=== PATIENT | male | born 1965 | race African-American/Black ===

== ENCOUNTER 2021-11-11 12:10 | Inpatient (IN) | payer OTHER ==
[~2021-11-11] VITALS: Ht 175.3 cm; Wt 100.0 kg
[2021-11-11] MEDS ORDERED: KETOROLAC 30 MG/ML VIAL. IVP ONE (12:45)
[2021-11-11] MEDS ORDERED: methylPREDNISolone SOD SUCC PF 125 MG/2 ML VIAL. IV ONE (12:45)
[2021-11-11] MEDS ORDERED: ORPHENADRINE CITRATE 60 MG/2 ML VIAL. IM ONE (12:45)
[2021-11-11] MEDS ORDERED: fentaNYL PF VIAL 100 MCG/2 ML VIAL IVP ONE ×2 (12:45→15:45)
--- NOTE | 2021-11-11 12:58 | PHYS DOC ---
Past Medical History Past Surgical History: No Surgical History General Adult EDM: Chief Complaint: BACK PAIN - NO INJURY HPI: HPI: Patient is a 56 year old male who presents with left to mid lower back pain is sharp and shooting at times wraps around into the hip area. For the last 2 days. He now has left hip numbness and numbness over the abdomen area. He states he is unable to ambulate due to pain and weakness in the left leg. Patient can however lift the leg up in the bed but this causes him spasm type pain in his lower back. Patient denies injury, any heavy lifting, loss of bowel or bladder, fever, urinary symptoms. He states he is just been rubbing Vicks ointment to the area but is not helping. He is Swahili speaking but family member in the room can interpret for him. Patient states when he is laying flat he has no pain but if he goes to try to move at all his pain is a 10 out of 10. Review of Systems: Review of Systems: Constitutional: Denies fever or chills. [] Eyes: Denies change in visual acuity. [] HENT: Denies nasal congestion or sore throat. [] Respiratory: Denies cough or shortness of breath. [] Cardiovascular: Denies chest pain or edema. [] GI: Denies abdominal pain, nausea, vomiting, bloody stools or diarrhea. [] : Denies dysuria. [] Musculoskeletal: + Mid lower and left lower back pain or left hip joint pain. [] Integument: Denies rash. [] Neurologic: Denies headache, focal weakness or sensory changes. + Numbness to left hip and abdomen area [] Endocrine: Denies polyuria or polydipsia. [] Lymphatic: Denies swollen glands. [] Psychiatric: Denies depression or anxiety. [] Heart Score: C/O Chest Pain: No Current Medications: Current Medications Medications (Trade) Dose Ordered Sig/Alcon Start Time Stop Time Status Last Admin Dose Admin Fentanyl Citrate (Fentanyl 2ml Vial) 50 mcg 1X ONCE 11/11/21 12:45 11/11/21 12:46 UNV Ketorolac Tromethamine (Toradol 30mg Vial) 30 mg 1X ONCE 11/11/21 12:45 11/11/21 12:46 UNV Methylprednisolone Sodium Succinate (SOLU-Medrol 125MG VIAL) 125 mg 1X ONCE 11/11/21 12:45 11/11/21 12:46 UNV Orphenadrine Citrate (Norflex) 60 mg 1X ONCE 11/11/21 12:45 11/11/21 12:46 UNV Allergies: Allergies: Allergies Coded Allergies Type Severity Reaction Last Updated Verified No Known Drug Allergies 11/11/21 No Physical Exam: PE: Constitutional: Well developed, well nourished, no acute distress, non-toxic appearance. [] HENT: Normocephalic, atraumatic, bilateral external ears normal, oropharynx moist, no oral exudates, nose normal. [] Eyes: PERRLA, EOMI, conjunctiva normal, no discharge. [] Neck: Normal range of motion, no tenderness, supple, no stridor. [] Cardiovascular:Heart rate regular rhythm, no murmur [] Lungs & Thorax: Bilateral breath sounds clear to auscultation [] Abdomen: Bowel sounds normal, soft, no tenderness, no masses, no pulsatile masses. [] Skin: Warm, dry, no erythema, no rash. [] Back: No tenderness, no CVA tenderness. [] Extremities: No tenderness, no cyanosis, no clubbing, ROM intact, no edema. [] Neurologic: Alert and oriented X 3, normal motor function, normal sensory function, no focal deficits noted. Numbness to lateral left hip and over lower abdomen area more so on the left side. [] Psychologic: Affect normal, judgement normal, mood normal. [] Current Patient Data: Vital Signs: Vital Signs Date Time Temp Pulse Resp B/P (MAP) Pulse Ox O2 Delivery O2 Flow Rate FiO2 11/11/21 12:10 98.2 90 18 178/83 (114) 98 Room Air 98.2 EKG: EKG: [] Radiology/Procedures: Radiology/Procedures: [] Impression: [facility] [address] [place] [address] IMAGING REPORT Signed PATIENT: BLAIR JEAN ACCOUNT: [id number] : 1965 LOCATION: ER AGE: 56 SEX: M EXAM STATUS: PRE ER ORD. PHYSICIAN: DAMION BOLTON APRN REASON: pain with movement- lab with pt PROCEDURE: HIP LEFT 2V WITH PELVIS AP view of the pelvis and two-view study of the left hip Clinical indications: Left hip pain with movement. FINDINGS: No acute fracture or dislocation or lytic process is evident. There is mild degenerative spurring of the left femoral head and mild degenerative joint space narrowing and subchondral sclerosis. The findings are consistent with primary degenerative osteoarthritis. The femoral head spurring seen laterally and superiorly at the junction with the left femoral neck could potentially caus e femoral acetabular impingement as well. IMPRESSION: No acute osseous abnormality. Mild primary degenerative osteoarthritis of the left hip joint. The left femoral head spurring at the junction with the femoral neck could result in femoral acetabular impingement. Electronically signed by: Will Kulkarni MD (11/11/2021 1:19 PM) [id number] DICTATED and SIGNED BY: WILL KULKARNI MD DATE: 11/11/21 1316 [facility] [address] [place] [address] IMAGING REPORT Signed PATIENT: BLAIR JEAN ACCOUNT: [id number] : 1965 LOCATION: ER AGE: 56 SEX: M EXAM STATUS: REG ER ORD. PHYSICIAN: DAMION BOLTON APRN REASON: pain with weakness in left extremity PROCEDURE: CT ABDOMEN PELVIS WO CONTRAST Study: 1. CT abdomen/pelvis without intravenous contrast 2. CT lumbar spine reconstruction Indication: Abdominal pain. Left lower extremity weakness. Comparison: No previous CT. Technique: Helical CT imaging performed of the abdomen and pelvis without the use of intravenous contrast. Sagittal and coronal reformats were obtained. The data was utilized to reconstruct smaller [id number] images through the lumbar spine. One or more of the following individualized dose reduction techniques were utilized for this examination: 1. Automated exposure control 2. Adjustment of the mA and/or kV according to patient size 3. Use of iterative reconstruction technique. Findings: Abdomen/pelvis: Inherently limited evaluation without intravenous contrast. Small hiatal hernia. Mildly patulous distal esophagus. No concerning localized wall thickening or surrounding inflammation/lymph node enlargement. Mild bibasilar atelectasis. Unremarkable liver, pancreas, spleen and adrenal glands. Gallstones without ancillary findings of acute cholecystitis. Nondilated biliary tree. Probable cyst at the lower pole of the left kidney, image 34 series 2, measuring up to approximately 1.7 cm. This is not well characterized but measures near simple density. No stone or hydronephrosis. Small calcification at the anterior margin of the bladder. No suspicious bladder wall thickening. The prostate is within normal limits at under 4 cm transverse. No significant abnormality of the colon. Mild volume well-formed stool. The appendix is likely surgically absent. Nonobstructed small bowel. Unremarkable stomach which is distended with ingested material. Small amount of calcific atherosclerosis. Nonaneurysmal abdominal aorta. Fat- containing inguinal hernia on the right with a small amount of fluid in the he rnia sac. No surrounding inflammation. No lymphadenopathy. Mild arthrosis at the hips. The visualized ribs are intact. Lumbar spine findings discussed below. 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 No acute fracture or focally aggressive osseous process. Mild levocurvature with the apex at L2. No advanced discogenic arthrosis. There is a component of central canal narrowing from L2-L3 through L4-L5. Narrowing of the neural foramina from L3-L4 through L5-S1. Impression: Abdomen/pelvis: 1. No acute abnormality identified throughout the abdomen or pelvis. 2. Gallstones without any associated findings of acute cholecystitis. 3. Fat-containing inguinal hernia on the right without evidence by CT for incarceration/strangulation. Correlate for any pain referrable to this region. Lumbar spine: 1. No acute osseous abnormality. 2. There is a component of central canal and neural foraminal narrowing from L2- L3 and below that does not appear to be severe however is incompletely characterized. If there is ongoing radiculopathy nonemergent/outpatient MRI is recommended. Electronically signed by: YORDY GUZMAN MD (11/11/2021 1:32 PM) [facility] DICTATED and SIGNED BY: YORDY GUZMAN MD DATE: 11/11/21 1321 Course & Med Decision Making: Course & Med Decision Making Pertinent Labs and Imaging studies reviewed. (See chart for details) See HPI. Speaks in full clear sentences. Less than sensation in the left lateral hip area to thigh, more so over the left lower abdomen area but patient points across the whole mid to lower abdomen area. Alert and oriented x4. Denies any type of headache, fall or dizziness. Denies any current vision change. States urinating is normal. Patient is given 125 Solu-Medrol, Norflex and Toradol. No acute findings on CT scans. Patient on a unable to ambulate or get up. Patient will be admitted for intractable back pain with weakness and numbness. I spoke to Pamela nurse practitioner for Dr. Messina who states to go ahead and admit the patient and put in an order for an MRI. Patient admitted to Dr. Castillo. [] Darwin Disclaimer: Darwin Disclaimer: This electronic medical record was generated, in whole or in part, using a voice recognition dictation system. Departure Departure Impression: Primary Impression: Intractable low back pain Additional Impressions: Numbness Weakness Unable to ambulate Disposition: ADMITTED INPATIENT Admitting Physician: ANURAG Condition: STABLE DAMION BOLTON EMPLOYEE REPRESENTATIVE November 11, 2021 12:58
[2021-11-11 13:14] LABS: BASO % 1 % (0-3); EOS # 0.1 x10^3/uL (0.0-0.7); EOS % 2 % (0-3); HEMATOCRIT 42.5 % (39.0-53.0); HEMOGLOBIN 14.5 g/dL (13.0-17.5); LYMPH # 1.8 x10^3/uL (1.0-4.8); LYMPH % 38 % (24-48); MEAN CORPUSCULAR HEMOGLOBIN 29 pg (25-35); MEAN CORPUSCULAR HGB CONC 34 g/dL (31-37); MEAN CORPUSCULAR VOLUME 85 fL (79-100); MONO # 0.3 x10^3/uL (0.0-1.1); MONO % 7 % (0-9); NEUT # 2.5 x10^3/uL (1.8-7.7); NEUT % 52 % (31-73); PLATELET COUNT 186 x10^3/uL (140-400); RED BLOOD COUNT 5.02 x10^6/uL (4.30-5.70); RED CELL DISTRIBUTION WIDTH 12.8 % (11.5-14.5); WHITE BLOOD COUNT 4.8 x10^3/uL (4.0-11.0)
[2021-11-11 13:20] LABS: CALCIUM 8.5 mg/dL (8.5-10.1); CREATININE 1.2 mg/dL (0.7-1.3); GFR 62.4; POTASSIUM 3.8 mmol/L (3.5-5.1)
--- NOTE | 2021-11-11 13:22 | RAD ---
AP view of the pelvis and two-view study of the left hip Clinical indications: Left hip pain with movement. FINDINGS: No acute fracture or dislocation or lytic process is evident. There is mild degenerative sp urring of the left femoral head and mild degenerative joint space narrowing and subchondral sclerosis . The findings are consistent with primary degenerative osteoarthritis. The femoral head spurring see n laterally and superiorly at the junction with the left femoral neck could potentially cause femoral acetabular impingement as well. IMPRESSION: No acute osseous abnormality. Mild primary degenerative osteoarthritis of the left hip joint. The left femoral head spurring at the junction with the femoral neck could result in femoral acetabular impingement. Electronically signed by: Noel Kulkarni MD (11/11/2021 1:19 PM) [id number]
[2021-11-11 13:28] LABS: ALBUMIN 3.3 g/dL (3.4-5.0); ALBUMIN/GLOBULIN RATIO 0.8 (1.0-1.7); TOTAL BILIRUBIN 0.4 mg/dL (0.2-1.0); TOTAL PROTEIN 7.7 g/dL (6.4-8.2)
--- NOTE | 2021-11-11 13:34 | RAD ---
Study: 1. CT abdomen/pelvis without intravenous contrast 2. CT lumbar spine reconstruction Indication: Abdominal pain. Left lower extremity weakness. Comparison: No previous CT. Technique: Helical CT imaging performed of the abdomen and pelvis without the use of intravenous cont rast. Sagittal and coronal reformats were obtained. The data was utilized to reconstruct smaller fiel d-of-view images through the lumbar spine. One or more of the following individualized dose reduction techniques were utilized for this examinat ion: 1. Automated exposure control 2. Adjustment of the mA and/or kV according to patient size 3. Use of iterative reconstruction technique. Findings: Abdomen/pelvis: Inherently limited evaluation without intravenous contrast. Small hiatal hernia. Mildly patulous distal esophagus. No concerning localized wall thickening or sid rounding inflammation/lymph node enlargement. Mild bibasilar atelectasis. Unremarkable liver, pancreas, spleen and adrenal glands. Gallstones without ancillary findings of acu te cholecystitis. Nondilated biliary tree. Probable cyst at the lower pole of the left kidney, image 34 series 2, measuring up to approximately 1.7 cm. This is not well characterized but measures near simple density. No stone or hydronephrosis. Small calcification at the anterior margin of the bladder. No suspicious bladder wall thickening. The prostate is within normal limits at under 4 cm transverse. No significant abnormality of the colon. Mild volume well-formed stool. The appendix is likely surgic ally absent. Nonobstructed small bowel. Unremarkable stomach which is distended with ingested materia l. Small amount of calcific atherosclerosis. Nonaneurysmal abdominal aorta. Fat-containing inguinal jodee ia on the right with a small amount of fluid in the hernia sac. No surrounding inflammation. No lymph adenopathy. Mild arthrosis at the hips. The visualized ribs are intact. Lumbar spine findings discussed below. 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 No acute fracture or focally aggressive osseous pr ocess. Mild levocurvature with the apex at L2. No advanced discogenic arthrosis. There is a component of central canal narrowing from L2-L3 through L4-L5. Narrowing of the neural foramina from L3-L4 thr ough L5-S1. Impression: Abdomen/pelvis: 1. No acute abnormality identified throughout the abdomen or pelvis. 2. Gallstones without any associated findings of acute cholecystitis. 3. Fat-containing inguinal hernia on the right without evidence by CT for incarceration/strangulatio n. Correlate for any pain referrable to this region. Lumbar spine: 1. No acute osseous abnormality. 2. There is a component of central canal and neural foraminal narrowing from L2-L3 and below that atkins s not appear to be severe however is incompletely characterized. If there is ongoing radiculopathy no nemergent/outpatient MRI is recommended. Electronically signed by: YORDY GUZMAN MD (11/11/2021 1:32 PM) [facility]
[2021-11-11 15:08] LABS: BACTERIA,URINE 0 /HPF (0-FEW)
--- NOTE | 2021-11-11 17:43 | NUR ---
used bull wheel worker Per ID# [id number] for pt's admission questions and health history. pt also said he does not take any home meds, no med reconciliation to be done. Pharmacy on verified and on file
[2021-11-11] MEDS ORDERED: ZOLPIDEM 5 MG TABLET. PO PRN (17:45)
[2021-11-11] MEDS ORDERED: oxyCODONE/APAP 5/325 1 TAB TABLET PO PRN (17:45)
[2021-11-11] MEDS ORDERED: CALCIUM CARBONATE 500 MG TAB.CHEW PO PRN (17:45)
[2021-11-11] MEDS ORDERED: ONDANSETRON PF 4 MG/2 ML VIAL. IVP PRN (17:45)
[2021-11-11] MEDS ORDERED: ELECTROLYTE (NON-ICU) PROTOCOL. MC PRN (17:45)
[2021-11-11] MEDS ORDERED: ACETAMINOPHEN 325 MG TABLET. PO PRN (17:45)
[2021-11-11] MEDS: oxyCODONE/APAP 5/325 1 TAB TABLET PO PRN ×2 (18:21→23:26)
[2021-11-11] MEDS: HEPARIN for SUB-Q USE 5,000 UNIT/ML VIAL. SQ SCH ×2 (18:25→23:35)
--- NOTE | 2021-11-11 18:42 | NUR ---
Notifed Dr. Newman of consult via telephone by JARET Abarms
[2021-11-11 19:00] VITALS: BP 148/93
--- NOTE | 2021-11-11 19:35 | PDOC1 ---
History and Physical Date of Service: DOS: DATE: 11/11/21 TIME: 19:35 Chief Complaint: Chief Complain: back pain History of Present Illness: HPI: Patient is a 56-year-old male presents emergency room with today complaining of lower back pain. Reports that it began about 2 days ago and is now radiating into his lower extremities. Particularly numbness in his left lower extremity. Unable to ambulate right now due to to the pain. Denies any sort of injury or trauma to the area. No incontinence of bowel or bladder. Tried Vicks ointment on the area but no improvement. Pain worse with movement. In the emergency room patient was provided with pain control. Imaging showed some narrowing around L2-L3. He is given a dose of steroids. Admitted to hospitalist. Past Medical/Surgical History: PMH/PSH: No known per patient Allergies: Allergies: Coded Allergies: No Known Drug Allergies (Unverified , 11/11/21) Family History: Family History: None known Social History: Social History: denies alcohol drug use. Occasional tobacco use Current Medications: Current Medications Current Medications Orphenadrine Citrate (Norflex) 60 mg 1X ONCE IM Last administered on 11/11/21at 13:15; Start 11/11/21 at 12:45; Stop 11/11/21 at 12:50; Status DC Fentanyl Citrate (Fentanyl 2ml Vial) 50 mcg 1X ONCE IVP Last administered on 11/11/21at 12:45; Start 11/11/21 at 12:45; Stop 11/11/21 at 12:50; Status DC Methylprednisolone Sodium Succinate (SOLU-Medrol 125MG VIAL) 125 mg 1X ONCE IV Last administered on 11/11/21at 13:15; Start 11/11/21 at 12:45; Stop 11/11/21 at 12:50; Status DC Ketorolac Tromethamine (Toradol 30mg Vial) 30 mg 1X ONCE IVP Last administered on 11/11/21at 12:45; Start 11/11/21 at 12:45; Stop 11/11/21 at 12:50; Status DC Fentanyl Citrate (Fentanyl 2ml Vial) 50 mcg 1X ONCE IVP Last administered on 11/11/21at 16:48; Start 11/11/21 at 15:45; Stop 11/11/21 at 15:48; Status DC Ondansetron HCl (Zofran) 4 mg PRN Q6HRS PRN IVP NAUSEA/VOMITING; Start 11/11/21 at 17:45 Calcium Carbonate/ Glycine (Tums) 500 mg PRN Q3HRS PRN PO UPSET STOMACH; Start 11/11/21 at 17:45 Zolpidem Tartrate (Ambien) 5 mg PRN QHS PRN PO INSOMNIA, MAY REPEAT IN 1HR; Start 11/11/21 at 17:45 Info (Non-Icu Electrolyte Protocol) 1 ea PRN DAILY PRN MC SEE COMMENTS; Start 11/11/21 at 17:45 Oxycodone/ Acetaminophen (Percocet 5/325) 1 tab PRN Q4HRS PRN PO MILD PAIN, 1ST CHOICE; Start 11/11/21 at 17:45 Oxycodone/ Acetaminophen (Percocet 5/325) 2 tab PRN Q4HRS PRN PO MODERATE PAIN, SEVERE PAIN Last administered on 11/11/21at 18:21; Start 11/11/21 at 17:45 Acetaminophen (Tylenol) 650 mg PRN Q6HRS PRN PO Headaches, Temp > 101.5F; Start 11/11/21 at 17:45 Senna/Docusate Sodium (Senna Plus) 1 tab BID PO ; Start 11/11/21 at 21:00 Heparin Sodium (Porcine) (Heparin Sodium) 5,000 unit Q8HRS SQ Last administered on 11/11/21at 18:25; Start 11/11/21 at 18:00 ROS: Review of Systems Review of System Unless noted in HPI 14 point review of systems was negative Physical Exam: Vital Signs: Vital Signs Date Time Temp Pulse Resp B/P (MAP) Pulse Ox O2 Delivery O2 Flow Rate FiO2 11/11/21 18:51 18 98 11/11/21 18:21 Room Air 11/11/21 12:10 98.2 90 178/83 (114) 98.2 Physcial Exam: GEN: Apparent distress due to pain. Alert and oriented HEENT: Normal cephalic, atraumatic, external auditory canals are patent EYES: Extraocular muscles are intact, pupil are equally round and reactive to light and accommodation MUSCULOSKELETAL: Well developed , well nourished, range of motion limited by pain ENDOCRINE: No thyromegaly was palpated LYMPHATICS: No cervical chain or axillary nodes were noted HEMATOPOIETIC: No bruising NECK: Supple, no JVD, no thyromegaly was noted LUNGS: Clear to auscultation in all lung cardoza without rhonchi or wheezing HEART: RRR, S1, S2 present. Peripheral pulses intact, no obvious murmurs noted ABDOMEN: Soft, nontender. Positive bowel sounds, no organomegaly, normal bowel sounds EXTREMITIES: Without clubbing, cyanosis, or edema. Pedal pulses intact. Negative Homans sign NEUROLOGIC: Normal speech and tone. A&O x 3, extremity movement limited by pain PSYCHIATRIC: Normal affect, normal mood. Stable SKIN: No ulcerations or rashes, good skin turgor, no jaundice VASCULAR: Good capillary refill, neurovascular bundle appears to be intact Labs: Labs: Laboratory Tests Test 11/11/21 13:00 11/11/21 14:56 White Blood Count 4.8 x10^3/uL (4.0-11.0) Red Blood Count 5.02 x10^6/uL (4.30-5.70) Hemoglobin 14.5 g/dL (13.0-17.5) Hematocrit 42.5 % (39.0-53.0) Mean Corpuscular Volume 85 fL (79-100) Mean Corpuscular Hemoglobin 29 pg (25-35) Mean Corpuscular Hemoglobin Concent 34 g/dL (31-37) Red Cell Distribution Width 12.8 % (11.5-14.5) Platelet Count 186 x10^3/uL (140-400) Neutrophils (%) (Auto) 52 % (31-73) Lymphocytes (%) (Auto) 38 % (24-48) Monocytes (%) (Auto) 7 % (0-9) Eosinophils (%) (Auto) 2 % (0-3) Basophils (%) (Auto) 1 % (0-3) Neutrophils # (Auto) 2.5 x10^3/uL (1.8-7.7) Lymphocytes # (Auto) 1.8 x10^3/uL (1.0-4.8) Monocytes # (Auto) 0.3 x10^3/uL (0.0-1.1) Eosinophils # (Auto) 0.1 x10^3/uL (0.0-0.7) Basophils # (Auto) 0.0 x10^3/uL (0.0-0.2) Sodium Level 140 mmol/L (136-145) Potassium Level 3.8 mmol/L (3.5-5.1) Chloride Level 106 mmol/L (98-107) Carbon Dioxide Level 26 mmol/L (21-32) Anion Gap 8 (6-14) Blood Urea Nitrogen 16 mg/dL (8-26) Creatinine 1.2 mg/dL (0.7-1.3) Estimated GFR (Cockcroft-Gault) 62.4 BUN/Creatinine Ratio 13 (6-20) Glucose Level 91 mg/dL (70-99) Calcium Level 8.5 mg/dL (8.5-10.1) Magnesium Level 2.0 mg/dL (1.8-2.4) Total Bilirubin 0.4 mg/dL (0.2-1.0) Aspartate Amino Transf (AST/SGOT) 55 U/L (15-37) Alanine Aminotransferase (ALT/SGPT) 53 U/L (16-63) Alkaline Phosphatase 66 U/L (46-116) Total Protein 7.7 g/dL (6.4-8.2) Albumin 3.3 g/dL (3.4-5.0) Albumin/Globulin Ratio 0.8 (1.0-1.7) Urine Collection Type Unknown Urine Color (Auto) Light yellow Urine Turbidity Clear Urine pH (Auto) 5.5 (<5.0-8.0) Urine Specific [place] 1.017 (1.000-1.030) Urine Protein (Auto) Negative mg/dL (Negative) Urine Glucose (Auto)(UA) Negative mg/dL (Negative) Urine Ketones (Auto) Negative mg/dL (Negative) Urine Blood (Auto) Trace (Negative) Urine Nitrite Negative (Negative) Urine Bilirubin (Auto) Negative (Negative) Urine Urobilinogen (Auto) Normal mg/dL (Normal) Urine Leukocyte Esterase (Auto) Negative (Negative) Urine RBC 1-2 /HPF (0-2) Urine WBC 1-4 /HPF (0-4) Urine Squamous Epithelial Cells Few /LPF Urine Bacteria 0 /HPF (0-FEW) Urine Mucus Mod /LPF Laboratory Tests Test 11/11/21 13:00 11/11/21 14:56 White Blood Count 4.8 x10^3/uL (4.0-11.0) Red Blood Count 5.02 x10^6/uL (4.30-5.70) Hemoglobin 14.5 g/dL (13.0-17.5) Hematocrit 42.5 % (39.0-53.0) Mean Corpuscular Volume 85 fL (79-100) Mean Corpuscular Hemoglobin 29 pg (25-35) Mean Corpuscular Hemoglobin Concent 34 g/dL (31-37) Red Cell Distribution Width 12.8 % (11.5-14.5) Platelet Count 186 x10^3/uL (140-400) Neutrophils (%) (Auto) 52 % (31-73) Lymphocytes (%) (Auto) 38 % (24-48) Monocytes (%) (Auto) 7 % (0-9) Eosinophils (%) (Auto) 2 % (0-3) Basophils (%) (Auto) 1 % (0-3) Neutrophils # (Auto) 2.5 x10^3/uL (1.8-7.7) Lymphocytes # (Auto) 1.8 x10^3/uL (1.0-4.8) Monocytes # (Auto) 0.3 x10^3/uL (0.0-1.1) Eosinophils # (Auto) 0.1 x10^3/uL (0.0-0.7) Basophils # (Auto) 0.0 x10^3/uL (0.0-0.2) Sodium Level 140 mmol/L (136-145) Potassium Level 3.8 mmol/L (3.5-5.1) Chloride Level 106 mmol/L (98-107) Carbon Dioxide Level 26 mmol/L (21-32) Anion Gap 8 (6-14) Blood Urea Nitrogen 16 mg/dL (8-26) Creatinine 1.2 mg/dL (0.7-1.3) Estimated GFR (Cockcroft-Gault) 62.4 BUN/Creatinine Ratio 13 (6-20) Glucose Level 91 mg/dL (70-99) Calcium Level 8.5 mg/dL (8.5-10.1) Magnesium Level 2.0 mg/dL (1.8-2.4) Total Bilirubin 0.4 mg/dL (0.2-1.0) Aspartate Amino Transf (AST/SGOT) 55 U/L (15-37) Alanine Aminotransferase (ALT/SGPT) 53 U/L (16-63) Alkaline Phosphatase 66 U/L (46-116) Total Protein 7.7 g/dL (6.4-8.2) Albumin 3.3 g/dL (3.4-5.0) Albumin/Globulin Ratio 0.8 (1.0-1.7) Urine Collection Type Unknown Urine Color (Auto) Light yellow Urine Turbidity Clear Urine pH (Auto) 5.5 (<5.0-8.0) Urine Specific [place] 1.017 (1.000-1.030) Urine Protein (Auto) Negative mg/dL (Negative) Urine Glucose (Auto)(UA) Negative mg/dL (Negative) Urine Ketones (Auto) Negative mg/dL (Negative) Urine Blood (Auto) Trace (Negative) Urine Nitrite Negative (Negative) Urine Bilirubin (Auto) Negative (Negative) Urine Urobilinogen (Auto) Normal mg/dL (Normal) Urine Leukocyte Esterase (Auto) Negative (Negative) Urine RBC 1-2 /HPF (0-2) Urine WBC 1-4 /HPF (0-4) Urine Squamous Epithelial Cells Few /LPF Urine Bacteria 0 /HPF (0-FEW) Urine Mucus Mod /LPF Assessment/Plan Assessment/Plan Intractable back pain with radiation to lower extremities, unable to ambulate secondary to pain. -Admit for pain control and further evaluation -Neurosurgery consulted in emergency room. Recommended MRI which is ordered -We will also consult PMR -As needed pain control overnight -PT OT -No home meds to resume -He does have normal bowel bladder function. Received a dose of steroids in the emergency room. We will hold off on any further until evaluated by consultants -May need rehab placement. -DVT prophylaxis Justifications for Admission Other Justification JIL JULIAN MD November 11, 2021 19:35
[2021-11-11 23:00] VITALS: BP 141/83
[2021-11-11] MEDS: SENNOSIDES/DOCUSATE 8.6/50MG TABLET. PO SCH (23:18)
[2021-11-12 03:28] VITALS: BP 133/80
[2021-11-12 06:15] VITALS: BP 135/75
[2021-11-12] MEDS: HEPARIN for SUB-Q USE 5,000 UNIT/ML VIAL. SQ SCH ×3 (06:26→21:58)
[2021-11-12] MEDS: oxyCODONE/APAP 5/325 1 TAB TABLET PO PRN ×3 (08:29→22:14)
[2021-11-12] MEDS: SENNOSIDES/DOCUSATE 8.6/50MG TABLET. PO SCH ×2 (08:29→21:52)
[2021-11-12] MEDS ORDERED: KETOROLAC 15 MG/ML VIAL. IM ONE (10:30)
[2021-11-12 11:00] VITALS: BP 146/86
[2021-11-12] MEDS ORDERED: MORPHINE SULFATE 2 MG/ML INJ. IVP PRN (13:00)
[2021-11-12 15:00] VITALS: BP 132/80
[2021-11-12] MEDS ORDERED: MAGNESIUM HYDROXIDE 2,400 MG/30 ML ORAL.SUSP. PO PRN (15:30)
[2021-11-12] MEDS ORDERED: BISACODYL 10 MG SUPP.RECT. PR PRN (15:30)
[2021-11-12] MEDS ORDERED: predniSONE 10 MG TABLET PO ONE (15:30)
[2021-11-12] MEDS ORDERED: SODIUM PHOSPHATES 19/7GM 133 ML ENEMA. PR PRN (15:30)
[2021-11-12] MEDS: tiZANidine 4 MG TABLET. PO SCH ×2 (16:21→21:52)
[2021-11-12] MEDS: PANTOPRAZOLE 40 MG TABLET.DR. PO SCH (16:21)
[2021-11-12] MEDS: BISACODYL 5 MG TABLET.DR. PO SCH (16:21)
[2021-11-12] MEDS: LIDOCAINE (700MG/PATCH) PATCH. TD SCH (16:22)
[2021-11-12 19:00] VITALS: BP 163/94
--- NOTE | 2021-11-12 20:44 | PDOC ---
[facility] PROGRESS NOTE Date of Service DOS: DATE: 11/12/21 TIME: 20:42 Chief Complaint Chief Complaint Intractable back pain with radiation to lower extremities, unable to ambulate secondary to pain. -Admit for pain control and further evaluation -Neurosurgery consulted in emergency room. Recommended MRI which is ordered -We will also consult PMR -As needed pain control overnight -PT OT -No home meds to resume -He does have normal bowel bladder function. Received a dose of steroids in the emergency room. We will hold off on any further until evaluated by consultants -May need rehab placement. -DVT prophylaxis History of Present Illness History of Present Illness 11/12 Patient evaluated examined at bedside. at bedside provided translation. Reporting ongoing pain particularly with movement. MRI ordered. Will increase pain meds add on morphine today. PMR neurosurgery consults pending. Informed patient and family careful work-up is still pending they understand this. Hopeful for MRI tonight or tomorrow morning. Discussed with bedside RN. Vitals/I&O Vitals/I&O: Vital Signs Date Time Temp Pulse Resp B/P (MAP) Pulse Ox O2 Delivery O2 Flow Rate FiO2 11/12/21 19:00 98.0 76 18 163/94 (117) 96 Room Air 98.0 I & O 11/11/21 11/11/21 11/12/21 15:00 23:00 07:00 Intake Total 1100 ml Balance 1100 ml Physical Exam General: Alert, Oriented X3, Cooperative Heart: Regular rate, Normal S1, Normal S2 Lungs: Clear Abdomen: Normal bowel sounds, Soft, No tenderness Extremities: No edema, Normal pulses Skin: No significant lesion Assessment and Plan Assessmemt and Plan Problems Medical Problems: (1) Intractable low back pain Status: Acute (2) Numbness Status: Acute (3) Unable to ambulate Status: Acute (4) Weakness Status: Acute Comment Review of Relevant I have reviewed the following items beka (where applicable) has been applied. Medications: Current Medications Medications (Trade) Dose Ordered Sig/Alcon Route PRN Reason Start Time Stop Time Status Last Admin Dose Admin Senna/Docusate Sodium (Senna Plus) 1 tab BID PO 11/11/21 21:00 11/12/21 08:29 Ketorolac Tromethamine (Toradol 15mg Vial) 15 mg 1X ONCE IM 11/12/21 10:30 11/12/21 10:32 DC 11/12/21 11:02 Morphine Sulfate (Morphine Sulfate) 2 mg PRN Q2HR PRN IVP PAIN 11/12/21 13:00 11/12/21 15:40 Bisacodyl (Dulcolax Tab) 10 mg DAILY PO 11/12/21 15:30 11/12/21 16:21 Pantoprazole Sodium (Protonix) 40 mg DAILYAC PO 11/12/21 16:30 11/12/21 16:21 Tizanidine HCl (Zanaflex) 4 mg Q8HRS PO 11/12/21 16:00 11/12/21 16:21 Prednisone (Prednisone) 10 mg 1X ONCE PO 11/12/21 15:30 11/12/21 15:43 DC 11/12/21 16:21 Lidocaine (Lidoderm) 1 patch DAILY TD 11/12/21 16:00 11/12/21 16:22 Justifications for Admission Other Justification JIL JULIAN MD November 12, 2021 20:44
[2021-11-12] MEDS ORDERED: PATCH REMOVAL. MC SCH (21:00)
--- NOTE | 2021-11-12 21:35 | CONS ---
DATE OF CONSULTATION: 11/12/2021 LOCATION: He is in room 444. ATTENDING PHYSICIAN: Van Castillo MD REASON FOR CONSULTATION: The patient was seen at the request of Dr. Castillo for rehab evaluation. I was asked to see about his back pain. 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 The patient with chronic lower back pain, was told he has some degenerative disk disease of lumbar vertebrae. The patient having increasing back pain, interfering with his mobility with radiation to his left lower extremity with associated numbness. He was admitted through the Emergency Room on 11/11/2021. He denies any trouble with his bowel or bladder control. The patient had radiological studies done including CT scan of the abdomen and lumbar spine, which revealed chronic unilateral pars defect on the right at L5. No acute fracture or focally aggressive osseous lesion was noted. Mild levocurvature with apex at L2. No advanced discogenic arthrosis. There is a component of central canal narrowing from L2-L3 through L4-L5, narrowing of the neural foramina from L3-L4 through L5-S1 gallstones without any associated findings of acute cholecystitis, fat-containing inguinal hernia on the right without evidence by CT of incarceration or strangulation. X-rays of the hip and pelvis revealed mild primary degenerative osteoarthritis of left hip with associated left femoral head spurring at the junction. The patient admits some problems with the gas. He does not use any back brace. He does not do any exercise for his back. The patient is not known allergic to any medication. He denies any history of diabetes mellitus or chronic ethanol abuse. Occasional use of tobacco. PHYSICAL EXAMINATION: NEUROLOGIC: Today revealed a middle-aged male. He is alert, oriented to time, place, person and circumstance, follows commands appropriately. Moves all 4 extremities voluntarily where he had 4+/5 grade muscle strength. Deep tendon reflexes are decreased overall with the absent knee and ankle jerks and he had equal perception of touch and pinprick sensation bilaterally. He had mild crepitus on range of motion of his knee joints. No significant pain on range of motion of his hip joints. He had painful limited movements of his lumbar spine without any paraspinal muscle spasm. Minimal tenderness to palpation over the right to sacroiliac joint area. Straight leg raising test is negative bilaterally. He is independent with bed mobility and transfers and up walking with somewhat antalgic gait. Keeping his back stiff. SKIN: His skin is intact at this time. ABDOMEN: He is obese. He had protuberant abdomen. ASSESSMENT: A middle-aged male with chronic lower back pain with recent exacerbation and left lumbar radiculitis with radiological evidence of degenerative disk disease and degenerative joint disease of lumbar vertebrae with no clinical evidence of ongoing lumbar radiculopathy, but clinical evidence of peripheral neuropathy, degenerative joint disease of his knees without much pain, obesity. The patient with history of gas trouble to rule out any gastroesophageal reflux disease. RECOMMENDATIONS: I have reviewed with him a home program of physical modalities and relax stretching exercise to his lower back and also proper body mechanics. Advised him to use lumbar corset while up. He can be discharged to home when medically stable with outpatient followup. He might benefit from lumbar epidural steroid injections. Dr. Castillo appreciate asking me to participate in the care of this interesting patient. I will be glad to see him for a followup with you on as needed basis. MALINDA/DARA BAEZ: Raghavendra TID: [id number]
[2021-11-12 23:02] VITALS: BP 121/93
[2021-11-13 03:25] VITALS: BP 123/80
[2021-11-13] MEDS: tiZANidine 4 MG TABLET. PO SCH ×2 (05:17→14:52)
[2021-11-13] MEDS: oxyCODONE/APAP 5/325 1 TAB TABLET PO PRN ×2 (05:18→10:10)
[2021-11-13] MEDS: HEPARIN for SUB-Q USE 5,000 UNIT/ML VIAL. SQ SCH ×2 (05:24→14:00)
[2021-11-13 07:00] VITALS: BP 148/88
--- NOTE | 2021-11-13 09:58 | RAD ---
MRI lumbar spine without contrast HISTORY: Intractable back pain with leg weakness and numbness. COMPARISON: CT lumbar spine November 11, 2021 FINDINGS: There is a right L5 pars interarticularis defect on sagittal T1-weighted image 4 with no ashley [place] edema which corresponds to a well-defined defect in prior CT imaging consistent with chronic unila teral spondylolysis. There is no anterolisthesis of the L5 vertebra. Lumbar vertebral body height and alignment intact. There is mild discogenic bony diameter posteriorly at L2-L3. Conus terminates at t he upper lumbar vertebral level. L1 vertebral body osseous hemangioma. Cauda equina is normal. 1.5 cm T2 hyperintense cyst of the left kidney present on prior CT imaging as well. Paraspinal tissues unre markable. Discogenic disease as described below. L1-L2: Normal. L2-L3: Disc desiccation, mild disc height loss, there is a mild disc bulge, with a posterior disc adia ulus tear and superimposed paracentral disc extrusion extending above the disc space within the ventr al spinal canal, which deforms the ventral dural sac, contributes to mild spinal canal stenosis the m idline AP dural sac diameter is 9.5 mm as well as mild-moderate narrowing of the right lateral recess about the descending right L3 nerve roots. Disc bulge also contributes to mild neural foraminal sten oses. L3-L4: Disc desiccation, there is a mild/moderate disc bulge, contributes to borderline spinal canal stenosis AP midline thecal sac diameter is 10.5 mm, and mild neural foraminal stenoses. L4-L5: Disc desiccation, mild to moderate left eccentric disc bulge, posterior disc height loss, post erior disc annulus tear with superimposed shallow central disc protrusion. Mild facet hypertrophy. Mo derate narrowing of the left lateral recess about the descending left L5 nerve roots. Borderline spin al canal stenosis midline AP dural sac diameter 11 mm. Moderate to severe neural foraminal stenoses w ith partial effacement of the perineural fat about the exiting L4 nerves. L5-S1: Disc desiccation, posterior disc height loss, extensive left paracentral disc annulus tear wit h shallow broad-based disc protrusion. Facet spurring and hypertrophy. Moderate left neural foraminal stenosis. Mild right neural foraminal stenosis. No spinal canal stenosis. IMPRESSION: 1. Lumbar degenerative disc disease and facet arthrosis. At L2-L3 there is a disc herniation which co ntributes to mild spinal canal stenosis and right lateral recess narrowing. At L3-L4 there is borderl ine spinal canal stenosis. At L4-5 there is borderline spinal canal stenosis, and narrowing of the le ft lateral recess. There are neural foraminal stenoses at several levels with the greatest degree of foraminal stenotic disease at L4-L5. See above. 2. Unilateral right L5 spondylolysis defect. Electronically signed by: Last Richter MD (11/13/2021 9:56 AM) [id number]
[2021-11-13] MEDS: LIDOCAINE (700MG/PATCH) PATCH. TD SCH (10:09)
[2021-11-13] MEDS: SENNOSIDES/DOCUSATE 8.6/50MG TABLET. PO SCH (10:09)
[2021-11-13] MEDS: BISACODYL 5 MG TABLET.DR. PO SCH (10:09)
[2021-11-13] MEDS: PANTOPRAZOLE 40 MG TABLET.DR. PO SCH (10:09)
--- NOTE | 2021-11-13 10:11 | PDOC ---
PROGRESS NOTES Date of Service DATE: 11/13/21 TIME: 10:04 Subjective Subjective He admits continued low back pain and constipation. Objective Objective Vital Signs Date Time Temp Pulse Resp B/P (MAP) Pulse Ox O2 Delivery O2 Flow Rate FiO2 11/13/21 07:00 98.1 73 18 148/88 (108) 96 Room Air 98.1 Intake and Output 11/13/21 07:00 Intake Total 1800 ml Output Total 500 ml Balance 1300 ml Intake Oral 1800 ml Output Urine Total 500 ml Physical Exam Physical Exam He is alert,supine in bed and he got up and walked with roller walker independently and no change with his neurological status. MRI scan revealed multi level HNP from L2-L3 to L5-S1 level,worse at L2-L3 level with associated facet degenerative changes and some degree of central spinal and neural foraminal compromise. Assessment Assessment Problems Medical Problems: (1) Intractable low back pain Status: Acute (2) Numbness Status: Acute (3) Unable to ambulate Status: Acute (4) Weakness Status: Acute Plan Plan of Care To start him on medrol dose pack and work on his constipation and home with out patient follow up when medically stable and I have written a note for him to take off from his work for 3 weeks,and for a roller walker and lumbar corset for use at home while up. Comment Review of Relevant I have reviewed the following items beka (where applicable) has been applied. Labs Laboratory Tests Test 11/11/21 13:00 11/11/21 14:56 White Blood Count 4.8 x10^3/uL (4.0-11.0) Red Blood Count 5.02 x10^6/uL (4.30-5.70) Hemoglobin 14.5 g/dL (13.0-17.5) Hematocrit 42.5 % (39.0-53.0) Mean Corpuscular Volume 85 fL (79-100) Mean Corpuscular Hemoglobin 29 pg (25-35) Mean Corpuscular Hemoglobin Concent 34 g/dL (31-37) Red Cell Distribution Width 12.8 % (11.5-14.5) Platelet Count 186 x10^3/uL (140-400) Neutrophils (%) (Auto) 52 % (31-73) Lymphocytes (%) (Auto) 38 % (24-48) Monocytes (%) (Auto) 7 % (0-9) Eosinophils (%) (Auto) 2 % (0-3) Basophils (%) (Auto) 1 % (0-3) Neutrophils # (Auto) 2.5 x10^3/uL (1.8-7.7) Lymphocytes # (Auto) 1.8 x10^3/uL (1.0-4.8) Monocytes # (Auto) 0.3 x10^3/uL (0.0-1.1) Eosinophils # (Auto) 0.1 x10^3/uL (0.0-0.7) Basophils # (Auto) 0.0 x10^3/uL (0.0-0.2) Sodium Level 140 mmol/L (136-145) Potassium Level 3.8 mmol/L (3.5-5.1) Chloride Level 106 mmol/L (98-107) Carbon Dioxide Level 26 mmol/L (21-32) Anion Gap 8 (6-14) Blood Urea Nitrogen 16 mg/dL (8-26) Creatinine 1.2 mg/dL (0.7-1.3) Estimated GFR (Cockcroft-Gault) 62.4 BUN/Creatinine Ratio 13 (6-20) Glucose Level 91 mg/dL (70-99) Calcium Level 8.5 mg/dL (8.5-10.1) Magnesium Level 2.0 mg/dL (1.8-2.4) Total Bilirubin 0.4 mg/dL (0.2-1.0) Aspartate Amino Transf (AST/SGOT) 55 U/L (15-37) Alanine Aminotransferase (ALT/SGPT) 53 U/L (16-63) Alkaline Phosphatase 66 U/L (46-116) Total Protein 7.7 g/dL (6.4-8.2) Albumin 3.3 g/dL (3.4-5.0) Albumin/Globulin Ratio 0.8 (1.0-1.7) Urine Collection Type Unknown Urine Color (Auto) Light yellow Urine Turbidity Clear Urine pH (Auto) 5.5 (<5.0-8.0) Urine Specific [place] 1.017 (1.000-1.030) Urine Protein (Auto) Negative mg/dL (Negative) Urine Glucose (Auto)(UA) Negative mg/dL (Negative) Urine Ketones (Auto) Negative mg/dL (Negative) Urine Blood (Auto) Trace (Negative) Urine Nitrite Negative (Negative) Urine Bilirubin (Auto) Negative (Negative) Urine Urobilinogen (Auto) Normal mg/dL (Normal) Urine Leukocyte Esterase (Auto) Negative (Negative) Urine RBC 1-2 /HPF (0-2) Urine WBC 1-4 /HPF (0-4) Urine Squamous Epithelial Cells Few /LPF Urine Bacteria 0 /HPF (0-FEW) Urine Mucus Mod /LPF Medications Current Medications Orphenadrine Citrate (Norflex) 60 mg 1X ONCE IM Last administered on 11/11/21 13:15; Start 11/11/21 at 12:45; Stop 11/11/21 at 12:50; Status DC Fentanyl Citrate (Fentanyl 2ml Vial) 50 mcg 1X ONCE IVP Last administered on 11/11/21at 12:45; Start 11/11/21 at 12:45; Stop 11/11/21 at 12:50; Status DC Methylprednisolone Sodium Succinate (SOLU-Medrol 125MG VIAL) 125 mg 1X ONCE IV Last administered on 11/11/21at 13:15; Start 11/11/21 at 12:45; Stop 11/11/21 at 12:50; Status DC Ketorolac Tromethamine (Toradol 30mg Vial) 30 mg 1X ONCE IVP Last administered on 11/11/21at 12:45; Start 11/11/21 at 12:45; Stop 11/11/21 at 12:50; Status DC Fentanyl Citrate (Fentanyl 2ml Vial) 50 mcg 1X ONCE IVP Last administered on 11/11/21at 16:48; Start 11/11/21 at 15:45; Stop 11/11/21 at 15:48; Status DC Ondansetron HCl (Zofran) 4 mg PRN Q6HRS PRN IVP NAUSEA/VOMITING; Start 11/11/21 at 17:45 Calcium Carbonate/ Glycine (Tums) 500 mg PRN Q3HRS PRN PO UPSET STOMACH; Start 11/11/21 at 17:45 Zolpidem Tartrate (Ambien) 5 mg PRN QHS PRN PO INSOMNIA, MAY REPEAT IN 1HR Last administered on 11/12/21at 21:52; Start 11/11/21 at 17:45 Info (Non-Icu Electrolyte Protocol) 1 ea PRN DAILY PRN MC SEE COMMENTS; Start 11/11/21 at 17:45 Oxycodone/ Acetaminophen (Percocet 5/325) 1 tab PRN Q4HRS PRN PO MILD PAIN, 1ST CHOICE; Start 11/11/21 at 17:45 Oxycodone/ Acetaminophen (Percocet 5/325) 2 tab PRN Q4HRS PRN PO MODERATE PAIN, SEVERE PAIN Last administered on 11/13/21at 05:18; Start 11/11/21 at 17:45 Acetaminophen (Tylenol) 650 mg PRN Q6HRS PRN PO Headaches, Temp > 101.5F; Start 11/11/21 at 17:45 Senna/Docusate Sodium (Senna Plus) 1 tab BID PO Last administered on 11/12/21at 21:52; Start 11/11/21 at 21:00 Heparin Sodium (Porcine) (Heparin Sodium) 5,000 unit Q8HRS SQ Last administered on 11/13/21at 05:24; Start 11/11/21 at 18:00 Ketorolac Tromethamine (Toradol 15mg Vial) 15 mg 1X ONCE IM Last administered on 11/12/21at 11:02; Start 11/12/21 at 10:30; Stop 11/12/21 at 10:32; Status DC Morphine Sulfate (Morphine Sulfate) 2 mg PRN Q2HR PRN IVP PAIN Last administered on 11/12/21at 15:40; Start 11/12/21 at 13:00 Bisacodyl (Dulcolax Tab) 10 mg DAILY PO Last administered on 11/12/21at 16:21; Start 11/12/21 at 15:30 Magnesium Hydroxide (Milk Of Magnesia) 2,400 mg PRN DAILY PRN PO CONSTIPATION; Start 11/12/21 at 15:30 Sodium Monofluorophosphate (Fleet Adult) 133 ml PRN DAILY PRN SC CONSTIPATION; Start 11/12/21 at 15:30 Bisacodyl (Dulcolax Supp) 10 mg PRN DAILY PRN SC CONSTIPATION; Start 11/12/21 at 15:30 Pantoprazole Sodium (Protonix) 40 mg DAILYAC PO Last administered on 11/12/21at 16:21; Start 11/12/21 at 16:30 Tizanidine HCl (Zanaflex) 4 mg Q8HRS PO Last administered on 11/13/21at 05:17; Start 11/12/21 at 16:00 Prednisone (Prednisone) 10 mg 1X ONCE PO Last administered on 11/12/21at 16:21; Start 11/12/21 at 15:30; Stop 11/12/21 at 15:43; Status DC Lidocaine (Lidoderm) 1 patch DAILY TD Last administered on 11/12/21at 16:22; Start 11/12/21 at 16:00 Miscellaneous (Lidoderm Patch Removal) 1 ea QHS MC Last administered on 11/12/21at 21:00; Start 11/12/21 at 21:00 Vitals/I & O Vital Sign - Last 24 Hours 11/12/21 11/12/21 11/12/21 11/12/21 11:00 12:11 12:41 15:00 Temp 98.0 98.1 98.0 98.1 Pulse 85 84 Resp 18 2 18 18 B/P (MAP) 146/86 (106) 132/80 (97) Pulse Ox 96 96 95 O2 Delivery Room Air Room Air Room Air 11/12/21 11/12/21 11/12/21 11/12/21 15:40 16:10 19:00 22:14 Temp 98.0 98.0 Pulse 76 Resp 18 18 18 B/P (MAP) 163/94 (117) Pulse Ox 96 96 96 96 O2 Delivery Room Air Room Air Room Air Room Air 11/12/21 11/13/21 11/13/21 11/13/21 23:02 03:25 05:18 07:00 Temp 98.1 97.7 98.1 98.1 97.7 98.1 Pulse 75 89 73 Resp 18 18 18 18 B/P (MAP) 121/93 (102) 123/80 (94) 148/88 (108) Pulse Ox 98 97 96 O2 Delivery Room Air Room Air Room Air Intake and Output 11/12/21 11/12/21 11/13/21 15:00 23:00 07:00 Intake Total 200 ml 1600 ml Output Total 500 ml Balance 200 ml 1100 ml Justifications for Admission Other Justification SOSA TOVAR MD November 13, 2021 10:11
[2021-11-13] MEDS: methylPREDNISolone 4 MG TABLET. PO SCH ×4 (10:14→17:30)
[2021-11-13 11:00] VITALS: BP 143/99
[2021-11-13] MEDS ORDERED: SENN-209 PO (12:59)
[2021-11-13] MEDS ORDERED: METH4TAB2 PO (12:59)
--- NOTE | 2021-11-13 13:02 | DISCH ---
DISCHARGE INSTRUCTIONS Condition on Discharge Condition on Discharge: Stable Activity After Discharge Activity Instructions for Disc: Activity as tolerated Lifting Instructions after Dis: Do not lift >10 pounds Exercise Instruction after Dis: Walk 30 min, 3 x per week Driving Instructions after Dis: Do not drive today Weight Bearing Status after Di: As tolerated Diet after Discharge Diet after Discharge: Cardiac Checks after Discharge DC Comment: Continue using back brace Follow-Up Follow up with: PCP within 2 weeks of discharge JESSICA SANTANA MD November 13, 2021 13:02
[2021-11-13] MEDS ORDERED: OXYC1TAB15 PO (13:03)
[2021-11-13 15:00] VITALS: BP 143/97
--- NOTE | 2021-11-13 18:03 | NUR ---
Patient OK to discharge after he is able to have a bm. 1430 Patient stated he did have a small BM. Patient was discharged to home with family. Taken out by wheelchair.
[2021-11-14] MEDS ORDERED: methylPREDNISolone 4 MG TABLET. PO SCH ×2 (08:30→21:00)
[2021-11-15] MEDS ORDERED: methylPREDNISolone 4 MG TABLET. PO SCH (09:00)
--- NOTE | 2021-11-15 18:21 | PDOC3 ---
[facility]-Discharge Summary Date of Admission: Date of Admission: November 11, 2021 Date of Discharge: Date of Discharge: November 13, 2021 Discharge Diagnosis: Discharge Diagnosis: Intractable back pain with radiation to lower extremities, unable to ambulate secondary to pain. Hospital Course: Hospital Course: 56-year-old male presents emergency room with today complaining of lower back pain. Reports that it began about 2 days ago and is now radiating into his lower extremities. Particularly numbness in his left lower extremity. Unable to ambulate right now due to to the pain. Denies any sort of injury or trauma to the area. No incontinence of bowel or bladder. Tried Vicks ointment on the area but no improvement. Pain worse with movement. In the emergency room patient was provided with pain control. Imaging showed some narrowing around L2-L3. He is given a dose of steroids. Admitted to hospitalist. 11/12 Patient evaluated examined at bedside. at bedside provided translation. Reporting ongoing pain particularly with movement. MRI ordered. Will increase pain meds add on morphine today. PMR neurosurgery consults pending. Informed patient and family careful work-up is still pending they understand this. Hopeful for MRI tonight or tomorrow morning. Discussed with bedside RN. By day of discharge, MRI was completed and neurosurgery recommended conservative management with brace. Patient will be discharged with a Medrol Dosepak and he will need to continue with the bowel regimen for constipation. Sent home with docusate senna and narcotics for 3 days. Rest of hospital course was uneventful. Disposition: Disposition/Orders: D/C to Home Activity: Activity: Resume previous activity Diet: Diet: Cardiac Medications: Home Meds Active Scripts Oxycodone/Apap 5-325 (PERCOCET 5-325 MG TABLET ) 1 Each Tablet, 1 TAB PO PRN Q4HRS PRN for PAIN for 3 Days, #18 TAB Prov:JESSICA SANTANA MD 11/13/21 Sennosides/Docusate Sodium (Stool Softener-Stimulant Lax) 1 Each Tablet, 1 TAB PO BID for constipation for 10 Days, #20 TAB Prov:JESSICA SANTANA MD 11/13/21 Methylprednisolone (MEDROL) 4 Mg Tab.ds.pk, 1 PKG PO UD for back pain for 10 Days, #1 PKG Prov:JESSICA SANTANA MD 11/13/21 Scheduled Methylprednisolone (Medrol), 1 PKG PO UD Sennosides/Docusate Sodium (Stool Softener-Stimulant Lax), 1 TAB PO BID Scheduled PRN Oxycodone/Apap 5-325 (Percocet 5-325 Mg Tablet ), 1 TAB PO PRN Q4HRS PRN for PAIN Total Time: Total Time: Total time spent was 32 minutes in preparing scripts, discharge planning with SWI and RN and preparing this discharge summary Patient seen and examined on day of discharge. No acute abnormal findings. Justicifation of Admission Dx: Justifications for Admission: Justification of Admission Dx: Yes (Intractable back pain and unable to ambulate) JESSICA SANTANA MD November 15, 2021 18:21
[2021-11-16] MEDS ORDERED: methylPREDNISolone 4 MG TABLET. PO SCH (09:00)
[2021-11-17] MEDS ORDERED: methylPREDNISolone 4 MG TABLET. PO SCH (09:00)
[2021-11-18] MEDS ORDERED: methylPREDNISolone 4 MG TABLET. PO SCH (09:00)
== END 2021-11-13 17:50 | disposition home or self-care (01) | DRG 552 ==
LOC: ER 12:10 → 4 NORTH 15:17 → OBSVTOIN 17:47
PROVIDERS: ADMIT Student in an Organized Health Care Education/Training Program; ATTEND Student in an Organized Health Care Education/Training Program
DX: M51.36 Other intervertebral disc degeneration, lumbar region (principal); M51.26 Other intervertebral disc displacement, lumbar region; G89.29 Other chronic pain; K40.90 Unilateral inguinal hernia, without obstruction or gangrene, not specified as recurrent; K59.00 Constipation, unspecified; K80.20 Calculus of gallbladder without cholecystitis without obstruction; M16.12 Unilateral primary osteoarthritis, left hip; G62.9 Polyneuropathy, unspecified; M47.26 Other spondylosis with radiculopathy, lumbar region; E66.9 Obesity, unspecified; Z68.32 Body mass index [BMI] 32.0-32.9, adult
CPT/HCPCS: 36415; 72148; 73502; 74176; 80053; 81001; 83735; 85025; 96372; 96374; 96375; G0378; G0379; J1644; J1885; J2270; J2360; J2930; J3010; J7509; J7512; 97116-GP; 97530-GP; 97535-GO; 99285-25